=== PATIENT | female | born 1975 | race Caucasian/White ===

== ENCOUNTER 2018-08-14 15:10 | Outpatient (CLI) | payer BC ==
--- NOTE | 2018-08-14 15:27 | RAD ---
FExam: 3 views lumbar spine HISTORY: Lumbar radiculopathy. FINDINGS: 5 lumbar type vertebral bodies. In the neutral position, no spondylolisthesis or spondyloly sis. Disc space heights are preserved. Upon extension and flexion, no abnormal motion or alignment. IMPRESSION: No evidence of spondylolisthesis or spondylolysis.
== END 2018-08-14 15:11 | disposition home or self-care (01) ==
LOC: TBSIIMAG 15:10
PROVIDERS: ATTEND Neurological Surgery
DX: M51.16 Intervertebral disc disorders with radiculopathy, lumbar region (principal)
CPT/HCPCS: 72100